=== PATIENT | male | born 1995 | race Caucasian/White ===

== ENCOUNTER 2018-09-27 23:21 | Inpatient (IN) | payer SELFPAY, OTHER ==
[2018-09-28] MEDS: morphine 2 MG INJ IV (02:35)
[2018-09-28] MEDS: SOD CHLORIDE 0.9% 1,000 ML IV ×2 (02:35→04:28)
[2018-09-28] MEDS: ONDANSETRON 4 MG INJ IV (02:36)
[2018-09-28 02:53] LABS: ADD MAN DIFF? NO
[2018-09-28 02:55] LABS: WHITE BLOOD COUNT 13.1 10^3/ul (4.8-10.8)
[2018-09-28 02:55] LABS: BASOPHILS % 0.2 % (0.0-2.0); EOSINOPHILS % 0.2 % (0.0-7.0); HEMATOCRIT 46.7 % (42.0-52.0); HEMOGLOBIN 15.5 g/dl (14.0-18.0); LYMPHOCYTES # 0.7 10^3/ul (0.8-2.9); LYMPHOCYTES % 5.4 % (15.0-51.0); MEAN CORPUSCULAR HEMOGLOBIN 27.9 pg (29.0-33.0); MEAN CORPUSCULAR HGB CONC 33.2 g/dl (32.0-37.0); MEAN PLATELET VOLUME 9.6 fl (7.4-10.4); MONOCYTE # 0.2 10^3/ul (0.3-0.9); MONOCYTES % 1.5 % (0.0-11.0); NEUTROPHIL # 12.1 10^3/ul (1.6-7.5); NEUTROPHILS % 92.3 % (39.0-77.0); PLATELET COUNT 262 10^3/UL (140-415); RED BLOOD COUNT 5.56 10^6/ul (4.70-6.10); RED CELL DISTRIBUTION WIDTH 12.1 % (11.5-14.5)
[2018-09-28 03:15] LABS: INR 0.92; PARTIAL THROMBOPLASTIN TIME 26.3 Sec (23.0-35.0); PROTIME 12.5 Sec (11.9-14.9)
[2018-09-28 03:26] LABS: ALANINE AMINOTRANSFERASE 40 IU/L (13-69); ALBUMIN 4.7 g/dl (3.3-4.9); ALBUMIN/GLOBULIN RATIO 1.27; ALKALINE PHOSPHATASE 123 IU/L (42-121); ANION GAP 9 (5-13); ASPARTATE AMINO TRANSFERASE 30 IU/L (15-46); BILIRUBIN,INDIRECT 0.3 mg/dl (0-1.1); BILIRUBIN,TOTAL 0.3 mg/dl (0.2-1.3); BLOOD UREA NITROGEN 18 mg/dl (7-20); CALCIUM 9.7 mg/dl (8.4-10.2); CARBON DIOXIDE 30 mmol/L (21-31); CHLORIDE 104 mmol/L (97-110); CREATININE 0.83 mg/dl (0.61-1.24); Estimated GFR > 60 mL/min (>60); GLUCOSE 140 mg/dl (70-220); LIPASE 30 U/L (23-300); POTASSIUM 3.5 mmol/L (3.5-5.1); SODIUM 143 mmol/L (135-144); TOTAL PROTEIN 8.4 g/dl (6.1-8.1)
[2018-09-28 03:29] LABS: ADD UMIC NO; UR ASCORBIC ACID NEGATIVE (NEGATIVE); UR BILIRUBIN (Dip) NEGATIVE (NEGATIVE); UR BLOOD (Dip) NEGATIVE (NEGATIVE); UR CLARITY CLEAR (CLEAR); UR COLOR YELLOW (YELLOW); UR GLUCOSE (Dip) NEGATIVE (NEGATIVE); UR KETONES (Dip) 1+ mg/dL (NEGATIVE); UR LEUKOCYTE ESTERASE (Dip) NEGATIVE Leu/ul (NEGATIVE); UR NITRITE (Dip) NEGATIVE (NEGATIVE); UR SPECIFIC GRAVITY (Dip) 1.014 (1.003-1.030); UR TOTAL PROTEIN (Dip) NEGATIVE (NEGATIVE); UR UROBILINOGEN (Dip) NEGATIVE (NEGATIVE)
[2018-09-28] MEDS: PIPER-TAZO 3.375 GM IV (PMX) 100 ML IVPB ×3 (04:28→17:34)
[2018-09-28] MEDS: HYDROmorphONE 1 MG/ML SYG IV (05:58)
[2018-09-28] MEDS ORDERED: ACETAMINOPHEN 325 MG TAB PO ×2 (06:30→09:30)
[2018-09-28] MEDS ORDERED: ONDANSETRON 4 MG INJ IV ×3 (06:30→12:00)
[2018-09-28] MEDS ORDERED: SEVOFLURANE 15 MIN (07:00)
[2018-09-28] MEDS: DEXTROSE 5%-0.45% NACL 1,000 ML IV ×2 (09:28→22:41)
[2018-09-28] MEDS ORDERED: NACL 0.9% 3 ML SYG IV (09:30)
[2018-09-28] MEDS ORDERED: HYDROCODONE/APAP (5/325) TAB PO (09:30)
[2018-09-28] MEDS ORDERED: morphine 2 MG INJ IV ×2 (09:30→12:00)
[2018-09-28] MEDS ORDERED: ROCURONIUM 50 MG INJ (09:50)
[2018-09-28] MEDS ORDERED: CEFAZOLIN 1 GM INJ (09:50)
[2018-09-28] MEDS ORDERED: PROPOFOL 20 ML (09:50)
[2018-09-28] MEDS ORDERED: ROPIVACAINE 0.5 % 30 ML VIAL (09:51)
[2018-09-28] MEDS ORDERED: FENTAnyl 50 MCG/ML VIAL (09:51)
[2018-09-28] MEDS ORDERED: MIDAZOLAM 1 MG/ML 2 ML INJ (09:51)
[2018-09-28 11:01] LABS: LACTIC ACID 0.9 mmol/L (0.5-2.0)
[2018-09-28] MEDS: BUPIVACAINE 0.25%/EPI (SDV) 30 ML INJ (11:36)
[2018-09-28] MEDS ORDERED: KETOROLAC 30 MG INJ (11:40)
[2018-09-28] MEDS ORDERED: ONDANSETRON 4 MG INJ (11:40)
[2018-09-28] MEDS ORDERED: DEXAMETHASONE 4 MG/ML 5 ML INJ (11:40)
[2018-09-28] MEDS ORDERED: METOCLOPRAMIDE 10 MG INJ (11:40)
[2018-09-28] MEDS ORDERED: SUGAMMADEX SODIUM 200 MG/2 ML VIAL IV (11:40)
[2018-09-28] MEDS ORDERED: EPHEDrine 25 MG/5 ML SYG (11:50)
[2018-09-28] MEDS ORDERED: OXYCODONE/ACETAMINOPHEN (5/325) TAB PO (12:00)
[2018-09-29] MEDS: PIPER-TAZO 3.375 GM IV (PMX) 100 ML IVPB ×3 (00:31→12:12)
[2018-09-29 05:19] LABS: ADD MAN DIFF? NO
[2018-09-29] MEDS: PANTOPRAZOLE 40 MG INJ IV (05:20)
[2018-09-29] MEDS: OXYCODONE/ACETAMINOPHEN (5/325) TAB PO (05:20)
[2018-09-29 05:34] LABS: BASOPHILS % 0.1 % (0.0-2.0); HEMATOCRIT 37.6 % (42.0-52.0); HEMOGLOBIN 12.4 g/dl (14.0-18.0); LYMPHOCYTES # 1.2 10^3/ul (0.8-2.9); LYMPHOCYTES % 11.1 % (15.0-51.0); MEAN CORPUSCULAR VOLUME 84.9 fl (82.0-101.0); MONOCYTE # 0.8 10^3/ul (0.3-0.9); MONOCYTES % 7.2 % (0.0-11.0); NEUTROPHIL # 8.7 10^3/ul (1.6-7.5); PLATELET COUNT 230 10^3/UL (140-415); RED BLOOD COUNT 4.43 10^6/ul (4.70-6.10); RED CELL DISTRIBUTION WIDTH 12.7 % (11.5-14.5)
[2018-09-29 05:34] LABS: WHITE BLOOD COUNT 10.7 10^3/ul (4.8-10.8)
[2018-09-29 05:54] LABS: ALANINE AMINOTRANSFERASE 27 IU/L (13-69); ALBUMIN 3.4 g/dl (3.3-4.9); ALBUMIN/GLOBULIN RATIO 1.25; ALKALINE PHOSPHATASE 60 IU/L (42-121); ANION GAP 8 (5-13); ASPARTATE AMINO TRANSFERASE 19 IU/L (15-46); BILIRUBIN,INDIRECT 0.5 mg/dl (0-1.1); BILIRUBIN,TOTAL 0.5 mg/dl (0.2-1.3); BLOOD UREA NITROGEN 13 mg/dl (7-20); CALCIUM 8.6 mg/dl (8.4-10.2); CARBON DIOXIDE 26 mmol/L (21-31); CHLORIDE 106 mmol/L (97-110); Estimated GFR > 60 mL/min (>60); GLUCOSE 129 mg/dl (70-220); MAGNESIUM 1.9 mg/dl (1.7-2.5); POTASSIUM 4.1 mmol/L (3.5-5.1); SODIUM 140 mmol/L (135-144); TOTAL PROTEIN 6.1 g/dl (6.1-8.1)
[2018-09-29 06:10] LABS: HEMOGLOBIN A1C 5.4 % (0-5.9)
== END 2018-09-29 15:02 | disposition home or self-care (01) | DRG 854 ==
LOC: FTE 23:21 → MS1 09-28 06:14
PROC: 0DTJ4ZZ Resection of Appendix, Percutaneous Endoscopic Approach (ICD-10-PCS; principal; 2018-09-28 11:09)
DX: A41.9 Sepsis, unspecified organism (principal); K35.30 Acute appendicitis with localized peritonitis, without perforation or gangrene
CPT/HCPCS: 36415; 74176; 80053; 81003; 83036; 83605; 83690; 83735; 85025; 85610; 85730; 87040-91; 88304; 96361; 96365; 96375; 99285-25